=== PATIENT | female | born 2000 | race Asian ===

== ENCOUNTER 2024-08-31 15:22 | Emergency (ER) | payer BC ==
[~2024-08-31] VITALS: Ht 160 cm; Wt 81.6 kg
[2024-08-31 15:25] VITALS: O2SAT 100
[2024-08-31] MEDS ORDERED: PRED20TA PO (16:14)
[2024-08-31] MEDS ORDERED: IBUP-1955 PO (16:14)
[2024-08-31] MEDS ORDERED: VALA100026 PO (16:14)
== END 2024-08-31 16:18 | disposition home or self-care (01) ==
LOC: ER 15:22
DX: R20.2 Paresthesia of skin (principal); R68.84 Jaw pain; M54.2 Cervicalgia; R20.0 Anesthesia of skin
CPT/HCPCS: A4606; A4663